=== PATIENT | male | born 1990 | race Caucasian/White ===

== ENCOUNTER 2022-01-23 08:19 | Emergency (ER) | payer OTHER ==
[~2022-01-23] VITALS: Ht 167.6 cm; Wt 113.4 kg
[2022-01-23 08:20] VITALS: BP_SYST 140
--- NOTE | 2022-01-23 08:20 | NUR ---
BROUGHT BACK TO BED #8 AND TRIAGED. REPORT GIVEN TO KAMILA
--- NOTE | 2022-01-23 08:21 | NUR ---
DR. ALONSO AT BEDSIDE TO ASSESS PT.
--- NOTE | 2022-01-23 08:21 | NUR ---
RECEIVED PT FROM ZULEYMA FARIA. PT BIBS FOR C/P 09/16 WITH TINGLING IN LEFT ARM. PT STATED HE HAS HAD PAST H/A. PT IS AAOX4. ON R/A. NO SOB OR RESP DISTRESS NOTED. NORMAL S1S2. DENIES N/V/D/C. SKIN INTACT, NO EDEMA, PERIPHERAL PULSES NORMAL. SIDERAILS UP X2.
--- NOTE | 2022-01-23 08:30 | NUR ---
EKG OBTAINED. # 20 gauge angiocath placed to . Use of asceptic technique. Opsite placed over site. Blood return noted. Flushed with 10 cc of normal saline. No evidence of infiltration noted. Patient tolerated well.
[2022-01-23] MEDS ORDERED: MORPHINE 4 MG INJ. 4 MG/ML VIAL IVP ONE (08:45)
[2022-01-23] MEDS ORDERED: NITROGLYCERIN 0.4 MG TAB.SUBL SL ONE (08:45)
[2022-01-23] MEDS ORDERED: ASPIRIN 325 MG TABLET PO ONE (08:45)
--- NOTE | 2022-01-23 08:57 | NUR ---
SCHEDULED MEDS GIVEN ORDERED AND TOLERATED WELL. PT EDUCATED TO REPORT S/S OF INCREASED PAIN, SOB. PT VERBALIZED UNDERSTANDING.
[2022-01-23 09:31] LABS: BASOPHILS # (AUTO) 0.1 K/uL (0.0-0.2); BASOPHILS % (AUTO) 0.7 % (0.0-2.0); EOSINOPHILS # (AUTO) 0.2 K/uL (0.0-0.4); EOSINOPHILS % (AUTO) 2.6 % (0.0-4.0); HEMATOCRIT 42.3 % (36-54); HEMOGLOBIN 14.4 g/dL (14.0-18.0); LYMPHOCYTES # (AUTO) 2.1 K/uL (1.0-5.5); LYMPHOCYTES % (AUTO) 22.9 % (20.5-51.5); MEAN CORPUSCULAR HEMOGLOBIN 29 pg (27-31); MEAN CORPUSCULAR HGB CONC 34 % (32-36); MEAN CORPUSCULAR VOLUME 84 fL (79.0-98.0); MONOCYTES # (AUTO) 0.7 K/uL (0.0-1.0); MONOCYTES % (AUTO) 8.2 % (1.7-9.3); NEUTROPHILS # (AUTO) 5.9 K/uL (1.8-7.7); NEUTROPHILS % (AUTO) 65.6 % (40.0-70.0); PLATELET COUNT (AUTO) 304 K/uL (130-430); RED BLOOD CELL COUNT(AUTO) 5.03 MIL/uL (4.2-6.2); RED CELL DISTRIBUTION WIDTH 14.2 % (9.0-15.0); WHITE BLOOD COUNT (AUTO) 9.1 K/uL (4.8-10.8)
[2022-01-23 09:33] LABS: ANION GAP 7 (5-15); CALCIUM 8.8 mg/dL (8.4-11.0); CHLORIDE 106 mmol/L (98-107); CREATININE 0.87 mg/dL (0.55-1.30); GLUCOSE 103 mg/dL (70-99); UREA NITROGEN, BLOOD 16 mg/dL (8-21)
[2022-01-23 09:35] LABS: GFR AFRICAN AMERICAN 130 mL/min (>90)
[2022-01-23 09:43] LABS: ALANINE AMINOTRANSFERASE 39 U/L (12-78); ALBUMIN 3.8 g/dL (3.4-4.8); ASPARTATE AMINOTRANSFERASE 16 U/L (10-37); LIPASE 111 U/L (73-393); TOTAL BILIRUBIN 0.3 mg/dL (0.0-1.0)
--- NOTE | 2022-01-23 09:58 | NUR ---
COVID-19 SWAB OBTAINED, LABELED, AND SENT TO THE LAB.
--- NOTE | 2022-01-23 12:21 | NUR ---
SECOND EKG COMPLETED.
[2022-01-23 13:26] VITALS: BP_SYST 108
== END 2022-01-23 13:28 | disposition home or self-care (01) ==
LOC: SED 08:19
DX: R07.9 Chest pain, unspecified (principal); R06.02 Shortness of breath; R55 Syncope and collapse; Z79.899 Other long term (current) drug therapy; Z20.822 Contact with and (suspected) exposure to COVID-19
CPT/HCPCS: 99285; 96374; 71045; 87426; 80053; 83880; 83690; 85025; 84484; 36415; 93005; J2270